=== PATIENT | male | born 1995 | race Two or more races ===

== ENCOUNTER 2024-12-08 19:16 | Emergency (ER) | payer MEDICAID, SELFPAY ==
[2024-12-08 19:18] VITALS: BMI 37.5
[2024-12-08 19:35] VITALS: BP 146/81; PULSE 73; RESP 18; TEMP 37.1; O2SAT 97
--- NOTE | 2024-12-08 20:39 | EKG_ITS ---
[facility] Test Date: 2024-12-08 Pat Name: PAMELA COSTA Department: Room: - Gender: Male Director Instrumentation: : 1995 Requested By: Nader Garces Order Number: [id number] Reading MD: Nader Garces Measurements Intervals [place] Rate: 63 P: 38 [place]: 166 QRS: 33 QRSD: 91 T: 7 QT: 379 QTc: 390 Interpretive Statements SINUS RHYTHM No previous ECG available for comparison /[email or web address]/[id number]
--- NOTE | 2024-12-08 20:46 | XR_ITS ---
Examination: PA lateral chest 2 views Clinical data to the neck Exam date and time: December 08, [id number] hrs. Indications: Coughing beginning one week ago. Findings: Multiple normal heart size Lungs are clear. The osseous structures are intact Impression: No active disease
[2024-12-08] MEDS: ACETAMINOPHEN 500 MG TABLET 1000 MG PO (22:06)
[2024-12-08] MEDS: IBUPROFEN TAB 400 MG TABLET 800 MG PO (22:07)
--- NOTE | 2024-12-08 22:11 | EDNOTE_ITS ---
<Statement entered by Felisa Lang MD - 12/09/24 18:38> As co-signing physician, I was present and available for consult prn. I concur with the plan and care as documented by the midlevel provider. Upper Respiratory Inf. RME/HPI General Chief Complaint: General Adult/Misc Complain Stated Complaint: COUGHING,UPPER BACK PAIN,CHEST AREA PAIN X 3 DAYS Time Seen by Provider: 12/08/24 20:45 Arrival date/time: 12/08/24 19:16 29M with no significant PMH presents to ED with several days of cough and CP/back pain when coughing. Sick contacts at home. Limitations: no limitations Related Data Previous Rx's ?Medication ?Instructions ?Recorded ibuprofen 800 mg tablet 800 mg PO TID PRN pain #30 t abs 04/30/22 Allergies Allergy/AdvReac Type Severity Reaction Status Date / Time No Known Allergies Allergy Verified 12/08/24 20:36 Review of Systems Review of Systems Systems Reviewed: All systems reviewed, normal except as documented Constitutional Constitutional: Reports system reviewed and no additional complaints, except as documented, Denies fever(s) and Denies headache(s) ENT Ears, Nose, Mouth, and Throat: Denies disequilibrium and Denies headache(s) Cardiovascular Cardiovascular: Reports system reviewed and no additional complaints, except as documented, Reports as per HPI, Reports chest pain and Denies dyspnea Respiratory Respiratory: Reports system reviewed and no additional complaints, except as documented, Reports as per HPI, Reports cough and Denies dyspnea Gastrointestinal Gastrointestinal: Reports system reviewed and no additional complaints, except as documented, Denies abdominal pain, Denies nausea and Denies vomiting Musculoskeletal Musculoskeletal: Reports as per HPI and Reports back pain Neurologic Neurologic: Reports system reviewed and no additional complaints, except as documented, Denies confusion, Denies disequilibrium and Denies headache(s) Psychiatric Psychiatric: Denies confusion Past Medical History Past Medical History CARDIAC: Negative Cardiac Disorders or Congestive Heart Failure RESPIRATORY: Negative Chronic Obstructive Pulmonary Disease (COPD) or Asthma GENITOURINARY: Negative Renal Disease ENDOCRINE: Negative Diabetes Mellitus Type 1 or Diabetes Mellitus Type 2 HEMATOLOGIC: Negative Sickle Cell Disease Social History SMOKING STATUS: Current some day smoker ED Exam General Limitations: Present no limitations General appearance: Present alert and in no apparent distress Head Head exam: Present atraumatic Eye Eye exam: Present normal appearance, PERRL and EOMI ENT ENT exam: Present normal exam, normal oropharynx and mucous membranes moist Neck Neck exam: Present normal inspection, full ROM and trachea midline Chest Chest inspection: Present normal inspection and symmetric chest wall rise Respiratory Respiratory exam: Present normal lung sounds bilaterally Cardiovascular Cardiovascular exam: Present regular rate, normal rhythm and normal heart sounds Abdominal Exam Abdominal exam: Present soft and normal bowel sounds Extremities Exam Extremities exam: Present normal inspection and full ROM Back Exam Back exam: Present normal inspection and full ROM Neurological Exam Neurological exam: Present alert, oriented X3 and CN II-XII intact Psychiatric Psychiatric exam: Present normal affect and normal mood Skin Skin exam: Present warm, dry, intact and normal color Course Quality Measures none Orders Category Date Time Status Bedside Influenza A&B Antigen Test NOW Care 12/08/24 19:41 Completed EKG (ED ONLY) *Do not use* NOW Care 12/08/24 20:39 Completed EKG (ED Only) Stat Exams 12/08/24 20:39 Ordered XR chest 2V Stat Exams 12/08/24 20:46 Completed Acetaminophen Tab [Tylenol ES Tab] Med 12/08/24 21:41 Discontinued 1,000 mg PO X1 ONE Ibuprofen Tab [Motrin Tab] Med 12/08/24 21:41 Discontinued 800 mg PO X1 ONE Vital Signs Vital signs: Vital Signs Temperature 98.8 F 12/08/24 19:35 Pulse Rate 73 12/08/24 19:35 Respiratory Rate 18 12/08/24 19:35 Blood Pressure 146/81 H 12/08/24 19:35 Pulse Oximetry (%) 97 12/08/24 19:35 Oxygen Delivery Method Room Air 12/08/24 19:35 O2 at 97% on RA and WNLs Upper Respiratory Infection MDM Narrative MDM Narrative:: 29M with no significant PMH presents to ED with several days of cough and CP/back pain when coughing. Sick contacts at home. Physical exam reveals nasal congestion, but clear ENT and lungs. Patient is afebrile, calm, and alert. Swabs neg. CXR normal. EKG is NSR. Likely viral URI. Patient data External records reviewed:: [facility] previous records Clinical information provided by:: patient Social determinants that could affect healthcare access:: none Patient has the following chronic illnesses:: none How is presenting disease/condition affected by chronic disease/condition?: no chronic disease Evaluation data The following diagnostics were reviewed and interpreted by me:: lab results, radiology exam(s) and EKG tracing(s) Lab and/or radiology exams considered but not ordered:: ordered Interpretation Summary: above Medications / Prescriptions Medications or Prescriptions considered but not ordered:: ordered Medication administrations:: Medication Administration History Discontinued Medications Acetaminophen (Acetaminophen 500 Mg Tablet) 1,000 mg PO X1 ONE Stop: 12/08/24 21:42 Last Admin: 12/08/24 22:06 Dose: 1,000 mg Documented By: Ibuprofen (Ibuprofen Tab 400 Mg Tablet) 800 mg PO X1 ONE Stop: 12/08/24 21:42 Last Admin: 12/08/24 22:07 Dose: 800 mg Documented By: above Consultations Consultation(s) initiated? (list below): No Diagnosis Upper Respiratory Differential Diagnosis: upper respiratory infection, croup, otitis media, sinusitis, viral infection, bronchitis, influenza, pharyngitis and other (ACS, PE, CAP) Most likely diagnosis given after review of the tests above:: URI Admission Indicated Admission indicated?: not indicated Admission Request Was there a request for admission?: No Disposition Plan Disposition Plan: Discharge Discharge Attestation Discharge Attestation: The patient and all family members were given an opportunity to ask questions and understood the discharge instructions. Discharge instructions specifically effects, indications for sooner follow up or return to the emergency department, and the expected course of current diagnosis. Patient condition: Stable Discharge Plan Plan Patient Disposition: HOME (Self Care) Disposition Comment: Stable Prescriptions/Referrals Prescriptions/Med Rec: No Action ibuprofen 800 mg tablet 800 mg PO TID PRN (Reason: pain) Qty: 30 0RF Referrals: Boo Keenan MD [Primary Care Provider] - In 1 week Problem List Clinical Impression: URI (upper respiratory infection) Patient/Caregiver Discharge Instructions Education Materials: ED URI, Viral, No Abx (Adult) Additional Instructions: Please follow-up with PCP within 24-48 hours and return immediately if symptoms worsen. Ibuprofen/Tylenol can be used simultaneously for greater fever/pain control. Benadryl is good for cough, congestion, and sleep. Print Language: Greek Stand Alone Forms: Patient Portal Info Letter PA/WILL Supervising Physician PA/WILL Supervising Physician: Dr. Lang
== END 2024-12-08 22:10 | disposition home or self-care (01) ==
PROVIDERS: Emergency Provider Emergency Medicine; PCP Family Medicine
DX: J06.9 Acute upper respiratory infection, unspecified (principal)
CPT/HCPCS: 71046; 87400; 93005; 99283; A9270